=== PATIENT | female | born 1935 | race Caucasian/White ===

== ENCOUNTER 2019-09-14 19:02 | Emergency (ER) | payer MEDICARE, OTHER ==
[~2019-09-14] VITALS: Ht 137.2 cm; Wt 46.4 kg
[2019-09-14 19:07] VITALS: BP 151/80
--- NOTE | 2019-09-14 19:20 | NUR ---
84 YEAR OLD FEMALE COMPLAINS OF LOWER ABDOMINAL PAIN SINCE THE MORNING. PATIENT STATES SHE HAS DIZZINESS, VOMITS, AND DIARRHEA SINCE THE MORNING WELL. PATIENT BOWEL SOUNDS ACTIVE X4, ABDOMEN SOFT, FLAT, AND TENDER IN LOWER QUADRANTS. PATIENT AOX4, BREATHING EVEN AND UNLABORED, SKIN WARM AND DRY. BED IN LOWEST POSITION, LOCKED, BED RAIL UPX1. TRANSLATIION USED IN [place]. PMH - HTN, DM2, DIVERTICULITIS ALLERGIES - NKA
--- NOTE | 2019-09-14 19:51 | NUR ---
Dr. Vazquez examining patient.
[2019-09-14] MEDS ORDERED: NACL 0.9% 1,000 ML IV SCH (19:54)
[2019-09-14] MEDS ORDERED: ONDANSETRON 4 MG/2 ML VIAL IVP ONE (19:55)
[2019-09-14] MEDS ORDERED: MORPHINE SULFATE 2 MG/ML SYR IVP ONE (19:55)
[2019-09-14 20:15] LABS: BASOPHILS % (AUTO) 0.6 % (0.0-2.0); EOSINOPHILS # (AUTO) 0.3 K/uL (0-0.4); EOSINOPHILS % (AUTO) 3.3 % (0.0-4.0); HEMATOCRIT 38.9 % (36-48); HEMOGLOBIN 12.6 g/dL (12.0-16.0); LYMPHOCYTES # (AUTO) 0.8 K/uL (2.5-16.5); LYMPHOCYTES % (AUTO) 10.1 % (20.5-51.1); MEAN CORPUSCULAR HEMOGLOBIN 28 pg (27-31); MEAN CORPUSCULAR HGB CONC 33 g/dL (33-37); MEAN CORPUSCULAR VOLUME 86.3 fL (80-94); MONOCYTES # (AUTO) 0.8 K/uL (0.8-1.0); NEUTROPHILS # (AUTO) 6.2 K/uL (1.8-7.7); PLATELET COUNT (AUTO) 192 K/uL (140-450); RED CELL DISTRIBUTION WIDTH 13.1 % (11.6-13.7); WHITE BLOOD COUNT (AUTO) 8.2 K/uL (4.8-10.8)
[2019-09-14 20:44] LABS: ALBUMIN 3.4 g/dL (3.4-5.0); AMYLASE 69 U/L (25-115); ANION GAP 12.5 (8-16); ASPARTATE AMINOTRANSFERASE 31 U/L (15-37); CARBON DIOXIDE 25.2 mmol/L (21-32); CHLORIDE 105 mmol/L (98-107); CREATININE 0.8 mg/dL (0.6-1.3); GLUCOSE 121 mg/dL (74-106); LIPASE 138 U/L (73-393); POTASSIUM 3.7 mmol/L (3.5-5.1); SODIUM SERUM 139 mmol/L (136-145); TOTAL BILIRUBIN 0.4 mg/dL (0.0-1.0); UREA NITROGEN, BLOOD 17 mg/dL (7-18)
--- NOTE | 2019-09-14 21:00 | NUR ---
PATIENT ALERT AND AWAKE, BREATHING EVEN AND UNLABORED
--- NOTE | 2019-09-14 22:00 | NUR ---
PATIENT ALERT AND AWAKE, BREATHING EVEN AND UNLABORED
[2019-09-14 22:42] LABS: APPEARANCE,URINE SL CLOUDY (CLEAR); BILIRUBIN,URINE NEGATIVE (NEGATIVE); BLOOD, URINE TRACE-I (NEGATIVE); COLOR,URINE YELLOW (YELLOW); LEUKOCYTE ESTERASE ,URINE NEGATIVE (NEGATIVE); NITRITE, URINE NEGATIVE (NEGATIVE); UGLUCOSE NEGATIVE (NEGATIVE)
[2019-09-14 23:03] LABS: WBC,URINE 0-5 /HPF (0-5)
--- NOTE | 2019-09-14 23:06 | NUR ---
PATIENT ALERT AND AWAKE, BREATHING EVEN AND UNLABORED
--- NOTE | 2019-09-14 23:06 | NUR ---
PATIENT PLACED ON 2L O2 NC BECAUSE SATURATION WOULD DIP TO 92%, PT O2 SATURATIO 98% NOW
[2019-09-15 00:10] VITALS: BP 113/50
--- NOTE | 2019-09-15 00:10 | NUR ---
Patient discharged with v/s stable. Pt states relief. Written and verbal after care instructions given and explained. Patient alert, oriented and verbalized understanding of instructions. Ambulatory with steady gait. All questions addressed prior to discharge. ID band removed. Patient advised to follow up with PMD. Rx of Keflex and Zofran given. Patient educated on indication of medication including possible reaction and side effects. Opportunity to ask questions provided and answered.
== END 2019-09-15 00:10 | disposition home or self-care (01) ==
LOC: MED 19:02
DX: R11.2 Nausea with vomiting, unspecified (principal); N39.0 Urinary tract infection, site not specified; I10 Essential (primary) hypertension; E11.9 Type 2 diabetes mellitus without complications; K57.92 Diverticulitis of intestine, part unspecified, without perforation or abscess without bleeding
CPT/HCPCS: 36415; 74177; 80053; 81001; 82150; 83690; 84703; 85025; 96361; 96374; 96375; 99285; J2270; J2405; J7030; Q9967

== ENCOUNTER 2019-09-16 13:35 | Emergency (ER) | payer MEDICARE, OTHER ==
[~2019-09-16] VITALS: Ht 139.7 cm; Wt 45.4 kg
[2019-09-16 13:49] VITALS: BP 130/77
--- NOTE | 2019-09-16 14:31 | NUR ---
PT AMBULATED TO BED 5
[2019-09-16] MEDS ORDERED: traMADol 50 MG TAB PO ONE (14:55)
[2019-09-16] MEDS ORDERED: ACETAMINOPHEN 325 MG TAB PO ONE (14:55)
--- NOTE | 2019-09-16 15:21 | NUR ---
84 Y/O WITH C/O LOWER ABDOMINAL PAIN, RADIATES TO THE BACK. PT STATES SHE WAS IN THE ED YESTERDAY FOR SAME SYMPTOMS, PAIN IS GETTING WORSE. PT DENIES N/V. PT STATES PAIN IS 6/10 CONSTANT. BOWEL SOUNDS PRESENT ALL FOUR QUADRANTS. PT POSITIONED FOR COMFORT. AT BEDSIDE. HERIBERTO
--- NOTE | 2019-09-16 15:23 | NUR ---
MAINTENANCE WORKER AT BEDSIDE DRAWING ORDERED LAB WORK
[2019-09-16 15:39] LABS: EOSINOPHILS # (AUTO) 0.3 K/uL (0-0.4); EOSINOPHILS % (AUTO) 5.9 % (0.0-4.0); HEMATOCRIT 39.5 % (36-48); HEMOGLOBIN 12.7 g/dL (12.0-16.0); LYMPHOCYTES # (AUTO) 1.6 K/uL (2.5-16.5); LYMPHOCYTES % (AUTO) 33.3 % (20.5-51.1); MEAN CORPUSCULAR HEMOGLOBIN 28 pg (27-31); MEAN CORPUSCULAR HGB CONC 32 g/dL (33-37); MEAN CORPUSCULAR VOLUME 87.2 fL (80-94); MONOCYTES # (AUTO) 0.6 K/uL (0.8-1.0); MONOCYTES % (AUTO) 11.7 % (1.7-9.3); NEUTROPHILS # (AUTO) 2.3 K/uL (1.8-7.7); NEUTROPHILS % (AUTO) 48.1 % (42.2-75.2); PLATELET COUNT (AUTO) 187 K/uL (140-450); RED BLOOD CELL COUNT(AUTO) 4.52 MIL/uL (4.20-5.40); RED CELL DISTRIBUTION WIDTH 13.4 % (11.6-13.7); WHITE BLOOD COUNT (AUTO) 4.9 K/uL (4.8-10.8)
[2019-09-16 15:59] LABS: ALBUMIN 3.1 g/dL (3.4-5.0); ANION GAP 12.7 (8-16); ASPARTATE AMINOTRANSFERASE 29 U/L (15-37); CARBON DIOXIDE 28.5 mmol/L (21-32); CHLORIDE 105 mmol/L (98-107); CREATININE 0.7 mg/dL (0.6-1.3); GLUCOSE 98 mg/dL (74-106); POTASSIUM 4.2 mmol/L (3.5-5.1); SODIUM SERUM 142 mmol/L (136-145); TOTAL BILIRUBIN 0.3 mg/dL (0.0-1.0); UREA NITROGEN, BLOOD 12 mg/dL (7-18)
--- NOTE | 2019-09-16 16:30 | NUR ---
PT RESTING COMFORTABLY, VSS. OFFERED BLANKET, AT BEDSIDE.
--- NOTE | 2019-09-16 16:45 | NUR ---
DR SOLARES AT BEDSIDE EXAMINING PATIENT.
[2019-09-16 16:49] LABS: APPEARANCE,URINE CLEAR (CLEAR); BILIRUBIN,URINE NEGATIVE (NEGATIVE); BLOOD, URINE TRACE-I (NEGATIVE); COLOR,URINE YELLOW (YELLOW); LEUKOCYTE ESTERASE ,URINE NEGATIVE (NEGATIVE); NITRITE, URINE NEGATIVE (NEGATIVE); UGLUCOSE NEGATIVE (NEGATIVE)
[2019-09-16 17:07] LABS: RBC,URINE 0-5 /HPF (0-5); WBC,URINE 0-5 /HPF (0-5)
[2019-09-16 17:32] VITALS: BP 128/80
== END 2019-09-16 17:33 | disposition home or self-care (01) ==
LOC: MED 13:35
DX: R10.2 Pelvic and perineal pain (principal); R30.0 Dysuria; M54.5 Low back pain; R10.30 Lower abdominal pain, unspecified; E11.9 Type 2 diabetes mellitus without complications; I10 Essential (primary) hypertension; K57.92 Diverticulitis of intestine, part unspecified, without perforation or abscess without bleeding
CPT/HCPCS: 36415; 80053; 81001; 85025; 99283

== ENCOUNTER 2019-09-27 18:08 | Emergency (ER) | payer MEDICARE, OTHER ==
[~2019-09-27] VITALS: Ht 152.4 cm; Wt 51.3 kg
[2019-09-27 18:43] VITALS: BP 119/59
--- NOTE | 2019-09-27 19:13 | NUR ---
patient called with no response
[2019-09-27] MEDS ORDERED: NACL 0.9% 500 ML IV ONE (19:40)
[2019-09-27] MEDS ORDERED: MECLIZINE 25 MG TAB PO ONE (19:40)
--- NOTE | 2019-09-27 19:51 | NUR ---
PT AT CT SCAN
--- NOTE | 2019-09-27 20:16 | NUR ---
PT with hx of vertigo c/o brief episodes of vertigo with sudden movements as getting up or sitting down. States sensation of room spinning. Denies n/v/fever. Denies vision change. Pt alert and oriented. States was seen at [facility] with similar symptoms, had "ears washed out" which was effective at treating her symptoms. 0 PAIN hx---dm, htn, vertigo
[2019-09-27 20:20] LABS: BASOPHILS # (AUTO) 0.1 K/uL (0.00-0.22); BASOPHILS % (AUTO) 0.8 % (0.0-2.0); EOSINOPHILS # (AUTO) 0.4 K/uL (0-0.4); HEMATOCRIT 37.7 % (36-48); HEMOGLOBIN 12.1 g/dL (12.0-16.0); LYMPHOCYTES # (AUTO) 1.9 K/uL (2.5-16.5); LYMPHOCYTES % (AUTO) 25.5 % (20.5-51.1); MEAN CORPUSCULAR HEMOGLOBIN 28 pg (27-31); MEAN CORPUSCULAR HGB CONC 32 g/dL (33-37); MEAN CORPUSCULAR VOLUME 87.1 fL (80-94); MONOCYTES # (AUTO) 0.6 K/uL (0.8-1.0); MONOCYTES % (AUTO) 7.7 % (1.7-9.3); NEUTROPHILS # (AUTO) 4.4 K/uL (1.8-7.7); PLATELET COUNT (AUTO) 194 K/uL (140-450); RED BLOOD CELL COUNT(AUTO) 4.32 MIL/uL (4.20-5.40); RED CELL DISTRIBUTION WIDTH 13.6 % (11.6-13.7); WHITE BLOOD COUNT (AUTO) 7.3 K/uL (4.8-10.8)
--- NOTE | 2019-09-27 20:22 | NUR ---
asked emt to obtain 12 lead ekg
--- NOTE | 2019-09-27 20:38 | NUR ---
EMT AT BEDSIDE FOR EKG
[2019-09-27 20:43] LABS: ALBUMIN 3.2 g/dL (3.4-5.0); ASPARTATE AMINOTRANSFERASE 24 U/L (15-37); CARBON DIOXIDE 28.5 mmol/L (21-32); CHLORIDE 108 mmol/L (98-107); GLUCOSE 102 mg/dL (74-106); POTASSIUM 4.5 mmol/L (3.5-5.1); SODIUM SERUM 145 mmol/L (136-145); TOTAL BILIRUBIN 0.1 mg/dL (0.0-1.0); UREA NITROGEN, BLOOD 23 mg/dL (7-18)
[2019-09-27 21:21] VITALS: BP 100/37
== END 2019-09-27 21:21 | disposition home or self-care (01) ==
LOC: MED 18:08
DX: R42 Dizziness and giddiness (principal); E11.9 Type 2 diabetes mellitus without complications; H92.03 Otalgia, bilateral
CPT/HCPCS: 36415; 70450; 72125; 80053; 81002; 85025; 93005; 96360; 99285; J7030; J8597

== ENCOUNTER 2022-05-30 12:06 | Emergency (ER) | payer MEDICARE, OTHER ==
[~2022-05-30] VITALS: Ht 134.6 cm; Wt 43.7 kg
[2022-05-30 12:06] VITALS: BP 163/73
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
--- NOTE | 2022-05-30 12:42 | NUR ---
Patient was wheelchair assisted to bed 7.
--- NOTE | 2022-05-30 12:52 | NUR ---
[employer] [employer] OFFICER SPEAKING WITH DR MC AT THIS TIME.
--- NOTE | 2022-05-30 13:07 | NUR ---
Lab at bedside,
--- NOTE | 2022-05-30 13:14 | NUR ---
[facility] [employer] at bedside.
--- NOTE | 2022-05-30 13:30 | NUR ---
Dr. Cornejo evaluating patient at bedside.
[2022-05-30 13:37] LABS: EOSINOPHILS # (AUTO) 0.1 K/uL (0-0.4); EOSINOPHILS % (AUTO) 1.9 % (0.0-4.0); HEMATOCRIT 40.9 % (36-48); HEMOGLOBIN 13.8 g/dL (12.0-16.0); LYMPHOCYTES # (AUTO) 1.3 K/uL (2.5-16.5); MEAN CORPUSCULAR HEMOGLOBIN 29 pg (27-31); MEAN CORPUSCULAR HGB CONC 34 g/dL (33-37); MEAN CORPUSCULAR VOLUME 85.6 fL (80-94); MONOCYTES # (AUTO) 0.4 K/uL (0.8-1.0); MONOCYTES % (AUTO) 7.8 % (1.7-9.3); NEUTROPHILS # (AUTO) 2.9 K/uL (1.8-7.7); NEUTROPHILS % (AUTO) 62.3 % (42.2-75.2); PLATELET COUNT (AUTO) 174 K/uL (140-450); RED BLOOD CELL COUNT(AUTO) 4.78 MIL/uL (4.20-5.40); WHITE BLOOD COUNT (AUTO) 4.7 K/uL (4.8-10.8)
[2022-05-30 13:49] LABS: ALBUMIN 3.2 g/dL (3.4-5.0); ANION GAP 15.2 (8-16); ASPARTATE AMINOTRANSFERASE 29 U/L (15-37); CARBON DIOXIDE 23.5 mmol/L (21-32); CHLORIDE 106 mmol/L (98-107); CREATININE 0.7 mg/dL (0.6-1.3); GLUCOSE 115 mg/dL (74-106); LIPASE 100 U/L (73-393); POTASSIUM 3.7 mmol/L (3.5-5.1); SODIUM SERUM 141 mmol/L (136-145); TOTAL BILIRUBIN 0.4 mg/dL (0.0-1.0); UREA NITROGEN, BLOOD 17 mg/dL (7-18)
--- NOTE | 2022-05-30 14:50 | NUR ---
Patient was assisted to the restroom.
[2022-05-30] MEDS ORDERED: CEPH-588 PO (15:16)
[2022-05-30 15:25] VITALS: BP 163/74
--- NOTE | 2022-05-30 15:25 | NUR ---
Patient discharged with v/s stable. Written and verbal after care instructions given. Patient alert, oriented and verbalized understanding of instructions. Ambulatory with steady gait. All questions addressed prior to discharge. ID band removed. Patient advised to follow up with PMD. Rx of Keflex given. Opportunity to ask questions provided and answered.
--- NOTE | 2022-05-30 15:26 | NUR ---
The patient's care was reviewed and supervised by Kelsey Rosado RN.
[2022-05-30 15:31] LABS: APPEARANCE,URINE CLEAR (CLEAR); BILIRUBIN,URINE NEGATIVE (NEGATIVE); BLOOD, URINE TRACE-I (NEGATIVE); COLOR,URINE YELLOW (YELLOW); LEUKOCYTE ESTERASE ,URINE 1+ (NEGATIVE); NITRITE, URINE NEGATIVE (NEGATIVE); UGLUCOSE NEGATIVE (NEGATIVE)
[2022-05-30 15:44] LABS: RBC,URINE 0-5 /HPF (0-5)
== END 2022-05-30 15:26 | disposition home or self-care (01) ==
LOC: MED 12:06
DX: K62.89 Other specified diseases of anus and rectum (principal); N39.0 Urinary tract infection, site not specified; I10 Essential (primary) hypertension; E11.9 Type 2 diabetes mellitus without complications
CPT/HCPCS: 36415; 80053; 81001; 83690; 85025; 87086; 99284

== ENCOUNTER 2022-06-14 11:26 | Emergency (ER) | payer MEDICARE, OTHER ==
[~2022-06-14] VITALS: Ht 137.2 cm; Wt 42.9 kg
[~2022-06-14 11:26] MED LIST: CEPH-588 PO
[2022-06-14 11:30] VITALS: BP 179/74
--- NOTE | 2022-06-14 11:40 | NUR ---
PATIENT AMBULATED TO BED 4.
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
--- NOTE | 2022-06-14 13:17 | NUR ---
XRAY AT BEDSIDE
[2022-06-14 13:50] LABS: BASOPHILS % (AUTO) 0.6 % (0.0-2.0); EOSINOPHILS # (AUTO) 0.1 K/uL (0-0.4); EOSINOPHILS % (AUTO) 1.2 % (0.0-4.0); HEMATOCRIT 41.9 % (36-48); LYMPHOCYTES # (AUTO) 1.4 K/uL (2.5-16.5); LYMPHOCYTES % (AUTO) 23.1 % (20.5-51.1); MEAN CORPUSCULAR HEMOGLOBIN 29 pg (27-31); MEAN CORPUSCULAR HGB CONC 33 g/dL (33-37); MEAN CORPUSCULAR VOLUME 86.1 fL (80-94); MONOCYTES # (AUTO) 0.5 K/uL (0.8-1.0); MONOCYTES % (AUTO) 7.7 % (1.7-9.3); NEUTROPHILS % (AUTO) 67.4 % (42.2-75.2); PLATELET COUNT (AUTO) 189 K/uL (140-450); RED BLOOD CELL COUNT(AUTO) 4.86 MIL/uL (4.20-5.40); RED CELL DISTRIBUTION WIDTH 14.3 % (11.6-13.7)
[2022-06-14 14:02] LABS: ALBUMIN 3.4 g/dL (3.4-5.0); ANION GAP 7.1 (8-16); ASPARTATE AMINOTRANSFERASE 27 U/L (15-37); CARBON DIOXIDE 30.4 mmol/L (21-32); CHLORIDE 105 mmol/L (98-107); CREATININE 0.9 mg/dL (0.6-1.3); GLUCOSE 97 mg/dL (74-106); POTASSIUM 4.5 mmol/L (3.5-5.1); SODIUM SERUM 138 mmol/L (136-145); TOTAL BILIRUBIN 0.4 mg/dL (0.0-1.0); UREA NITROGEN, BLOOD 21 mg/dL (7-18)
--- NOTE | 2022-06-14 15:30 | NUR ---
CHAPERONED RECTAL EXAM WITH DR OBRIEN
--- NOTE | 2022-06-14 16:54 | NUR ---
DR OBRIEN SPEAKING TO DAUGHTER BRITTANY REGARDING ALLEGATIONS. DAUGHTER STATES AWARE OF MOTHER'S ALLEGATIONS AND PREVIOUS VISITS FOR SAME COMPLAINTS
--- NOTE | 2022-06-14 17:07 | NUR ---
REPORTED TO [facility] REFERRAL # [id number]
[2022-06-14 17:58] VITALS: BP 133/70
--- NOTE | 2022-06-14 17:59 | NUR ---
Patient discharged with v/s stable. Written and verbal after care instructions given and explained. Patient verbalized understanding. Ambulatory with steady gait. All questions addressed prior to discharge. Advised to follow up with PMD.
== END 2022-06-14 17:58 | disposition home or self-care (01) ==
LOC: MED 11:26
DX: K62.89 Other specified diseases of anus and rectum (principal); I10 Essential (primary) hypertension; E11.9 Type 2 diabetes mellitus without complications; Z79.4 Long term (current) use of insulin; Z79.899 Other long term (current) drug therapy
CPT/HCPCS: 36415; 74018; 80053; 85025; 99284; Q0092